=== PATIENT | female | born 2000 | race Caucasian/White ===

== ENCOUNTER 2024-06-13 15:26 | Emergency (ER) | payer MEDICAID, SELFPAY ==
[2024-06-13 15:27] VITALS: BP 190/103; PULSE 123; RESP 20; TEMP 36.2; O2SAT 100; BMI 50.3
--- NOTE | 2024-06-13 15:38 | EDS_ITS ---
HPI History of Present Illness Chief Complaint: Lower Extremity Injury Narrative Narrative: 24-year-old female past medical history of bipolar disorder presents with her mother because of injury to her left foot which she sustained when she was leaving work 2 to 3 days ago. She states she was walking and soft shoes when she missed a step, and her foot turned in. Since then she has noticed swelling with bruising at the base of her toes and pain across the top of her foot, and at the base of the fifth metatarsal. She denies any ankle pain. No other injury. She has been taking ibuprofen without relief. She presents with her mother because of the injury to her left foot. [facility] Medical History History of gastric ulcer Insulin resistance Bipolar 1 disorder Depression Obesity Home Medications ?Medication ?Instructions ?Recorded ?Last Taken ?Type aripiprazole 30 mg tablet mg PO 07/05/23 Unknown History azithromycin 250 mg tablet See Rx Instructions PO .COMPLEX #6 07/05/23 Unknown Rx tabs desogestrel 0.15 mg-ethinyl 1 tab PO DAILY 07/05/23 Unknown History estradiol 0.03 mg tablet (Suhaser) ergocalciferol (vitamin D2) 1,250 PO 07/05/23 Unknown History mcg (50,000 unit) capsule metformin 750 mg tablet,extended mg PO 07/05/23 Unknown History release 24 hr phentermine 15 mg capsule mg PO 07/05/23 Unknown History topiramate 25 mg tablet mg PO 07/05/23 Unknown History Allergy/AdvReac Type Severity Reaction Status Date / Time No Known Allergies Allergy Verified 06/13/24 15:26 Family History Other Hypertension Surgical History No pertinent past surgical history Social History Smoking Status: Never smoker alcohol intake: current substance use type: does not use ROS ROS ED ROS Narrative Constitutional: No fever, no chills. Cardiovascular: No chest pain. No palpitations. No pedal edema. Respiratory: No cough, no shortness of breath. Abdominal: No abdominal pain. No nausea. No vomiting. Genitourinary: No dysuria. No hematuria. Musculoskeletal: Left foot pain and swelling. No ankle pain. Worse with weightbearing and walking. Noted bruising at the base of toes. No other injury. Psychiatric: No depression. No anxiety. EXAM Physical Exam Narrative Exam Narrative: Afebrile. Vital signs noted. Nontoxic-appearing. Intermittent tachycardia. Inspection of the left foot does show bruising at the base of the toes. There is diffuse tenderness to palpation across the tarsal bones, but no crepitance. Mild tenderness to palpation left proximal/base of the fifth metatarsal. No palpable Achilles tendon deficit. No medial or lateral malleolus tenderness. Flexion extension of left knee intact. No proximal fibular head tenderness. No palpable Achilles tendon deficit. Const Vital Signs: 06/13/24 15:27 06/13/24 16:52 06/13/24 17:05 Temperature 97.2 F L 98.0 F Temperature Source Temporal Pulse Rate 123 H 106 H 106 H Respiratory Rate 20 H 18 18 Blood Pressure 190/103 H 140/100 H 140/100 H Blood Pressure Mean 132 113 113 Pulse Ox 100 97 100 Oxygen Delivery Method Room Air Room Air MDM MDM MDM Narrative Medical decision making narrative: Concern is for foot sprain in the differential diagnosis versus fracture. I have low suspicion for Lisfranc fracture as she has no tenderness between the first and second metatarsals, and there is no crepitance. I also discussed with her the possibility of whether or not she wanted to file a claim with the [employer]men's Compensation. Her mother states that it is not a work-related injury because she was not working at that time and she was getting ready to leave the workplace. X-rays were obtained of the left foot and 3 views and interpreted by myself independently. On my independent interpretation of her left foot x-rays, I see no evidence of an acute fracture. I reviewed the radiology report which confirms my independent interpretation. At this point in time, she will be placed in a postoperative shoe and told to continue ice, elevation, and follow-up with podiatry. She declined crutches and wanted to see how she would do with just the postoperative shoe. Additionally, she had an elevated blood pressure reading here but she is asymptomatic. Repeat blood pressure is borderline at 140 systolic. She was told that she should follow-up with her primary care provider regarding her elevation in blood pressure. Return instructions to the emergency department were reviewed. Disposition is discharged home in stable condition. History & Record Review Discussion w/independent historian: Patient and Family Radiography X-Ray: Read by ED Physician Diagnostic Testing: Clinical Impression(s) from Imaging Studies Foot X-Ray 06/13/24 15:40 IMPRESSION: No acute bony injury. Electronically Signed: Patrice Calloway DO at 17:38 EST Reading Location ID and State: [facility] / [place] Tel [phone], Service support , Discharge Plan Triage Chief Complaint: Lower Extremity Injury ED Provider: Thomas Arenas Dx/Rx/DC Orders Clinical Impression: Foot sprain, Contusion of foot, left, Elevated blood pressure reading Instructions: ED Foot Contusion, ED Foot Sprain, ED Hypertension, To Be Confirmed Prescriptions: No Action topiramate 25 mg tablet PO Patient Comments: Take 1 tablet by mouth twice daily. metformin 750 mg tablet extended release 24 hr PO Patient Comments: Take 1 tablet by mouth daily with dinner. phentermine 15 mg capsule PO Patient Comments: Take 1 capsule by mouth daily before breakfast for 30 days. ergocalciferol (vitamin D2) 1,250 mcg (50,000 unit) capsule PO Patient Comments: Take 1 capsule by mouth one time a week. desogestrel-ethinyl estradiol [Juleber] 0.15-0.03 mg tablet 1 tab PO DAILY Patient Comments: TAKE 1 TABLET BY MOUTH ONCE DAILY aripiprazole 30 mg tablet PO Patient Comments: TAKE 1 TABLET BY MOUTH ONCE DAILY azithromycin 250 mg tablet See Rx Instructions PO .COMPLEX Qty: 6 0RF Rx Instructions: take 500 mg today (day 1), then 250 mg for 4 days (days 2-5) PO Stand Alone Forms: ED Work / School Excuse Primary Care Provider: Care Physician,No Primary Referrals: Shabbir Ceron DPM [Med Staff - Active Staff] - 1 Week if not improving Care Physician,No Primary [Primary Care Provider] - Activity Restrictions/Additional Instructions: Continue [id number] medications like ibuprofen or Tylenol as needed for pain. Return with new or worsening symptoms. Print Language: Ukrainian Disposition Disposition: Home, Self Care Discharge Date/Time: 06/13/24 17:06
--- NOTE | 2024-06-13 15:40 | RAD_ITS ---
INDICATION: Trauma EXAMINATION/TECHNIQUE: X-RAY - LEFT XR Foot Min 3 Views 3 VIEWS COMPARISON: FINDINGS: SOFT TISSUES: Subcutaneous edema of the foot. No radiopaque foreign body. BONES/JOINTS: No acute fracture or subluxation.. Normal alignment. Preservation of the joint space.. No sclerotic or destructive changes observed. RAD/Foot min 3 Views IMPRESSION: No acute bony injury. Electronically Signed: Patirce Calloway DO at 17:38 EST ,
[2024-06-13 16:52] VITALS: BP 140/100; PULSE 106; RESP 18; O2SAT 97
[2024-06-13 17:05] VITALS: BP 140/100; PULSE 106; RESP 18; TEMP 36.7; O2SAT 100
== END 2024-06-13 17:06 | disposition home or self-care (01) ==
PROVIDERS: Emergency Provider Emergency Medicine; Visit Provider Emergency Medicine
DX: S93.602A Unspecified sprain of left foot, initial encounter (principal); F31.9 Bipolar disorder, unspecified; S90.32XA Contusion of left foot, initial encounter; R03.0 Elevated blood-pressure reading, without diagnosis of hypertension; X58.XXXA Exposure to other specified factors, initial encounter
CPT/HCPCS: 73630; 99283